=== PATIENT | female | born 1985 | race Caucasian/White ===

== ENCOUNTER 2017-01-20 21:05 | Emergency (ER) | payer BC ==
--- NOTE | 2017-01-20 22:12 | DIAGNOSTIC IMAGING REPORT ---
PROCEDURE: XR CHEST 2 VIEW INDICATION: SHORTNESS OF BREATH TECHNIQUE: Two views. COMPARISON: None. FINDINGS: The cardiomediastinal contour and central vasculature are within normal limits. The lungs are clear without focal consolidation, pleural effusion, or pneumothorax. The visualized osseous structures are intact. IMPRESSION: 1. Normal chest.
--- NOTE | 2017-01-20 23:01 | ED NURSING NOTES ---
Clinical Report - Nurses [facility] [address] [place] [address] 01/20/2017 21:06 Patient: EDVIN GONZALES TRIAGE Triage time 21:14. Acuity: LEVEL 3. Chief Complaint: SHORTNESS OF BREATH and CHEST PAIN. --21:20 Domenico Ricardo R.N. 21:14 01/20/17. BP: 138/84. HR: 111 (regular and tachycardic). RR: 24. O2 saturation: 100%. Temp: 100.1 F (oral). Pain level now: 01/29. --21:20 Domenico Ricardo R.N. Weight: 136 kg stated. Height/Length: 66 inches Per Patient. BMI: 48.4. --21:15 Domenico Ricardo R.N. Medications None. --21:15 Domenico Ricardo R.N. Allergies Ibuprofen.(hives) --21:15 Dmoenico Ricardo R.N. History Arrived by private vehicle. Historian: patient. Accompanied by friend. This started last night. ( difficulty breathing, like headedness, and chest pressure "it feels like something is sitting on my chest" with anxiety). She has had a cough productive of sputum. SOCIAL HX: Heavy tobacco smoker (cigarette)- 1 pack per day. Occasional alcohol use. No drug use. SELF HARM ASSESSMENT: A self harm assessment was performed. The patient answered "no" to the question "Have you recently felt down, depressed, or hopeless?", "Have you noticed less interest or pleasure in doing things?", "Do you have thoughts of harming or killing yourself?", "Are you here because you tried to hurt yourself?", "Have you ever tried to hurt yourself before today?" and "Have you recently had thoughts about harming or killing others?". FALL RISK ASSESSMENT: Fall risk assessment completed. No fall risk identified. NUTRITIONAL RISK ASSESSMENT: The nutritional risk assessment revealed no deficiencies. FUNCTIONAL ASSESSMENT: Functional assessment: no impairments noted. LEARNING NEEDS ASSESSMENT: The learning needs assessment revealed no barriers. SKIN INTEGRITY ASSESSMENT: Skin integrity risk assessment completed. No skin integrity risk identified. --21:20 Domenico Ricardo R.N. PROBLEMS: Back Pain. Migraine Headache. Gastroesophageal Reflux Disease. Ovarian Cyst. --21:15 Domenico Ricardo R.N. ADDITIONAL SURGERIES: Laparoscopy. Ovary removal. Tubal Ligation. --21:15 Domenico Ricardo R.N. Interventions ID band on patient. To treatment room. --21:20 Domenico Ricardo R.N. PHYSICAL ASSESSMENT Ambulatory to room. GENERAL / NEURO / PSYCH: Alert. Oriented X 4. Appears anxious. HEENT: Mucous membranes are pink. RESPIRATORY: The patient can speak in full sentences. Right upper chest wall tenderness and left upper chest wall tenderness. The tenderness is diffuse. Decreased breath sounds diffusely over both lungs. CVS: Cardiac rhythm: sinus tachycardia. ( NSR on monitor). Capillary refill less than 2 seconds. GI / : Abdomen soft and nontender. SKIN: Normal skin turgor. --21:24 Domenico Ricardo R.N. NURSING PROGRESS NOTES property assessment monitor, pulse oximeter and NIBP monitor placed on patient. Patient gowned. Head of bed elevated. Reassurance given. Two patient identifiers checked. Call light placed in reach. Side rails up. Bed placed in lowest position. Brakes of bed on. Patient ready for evaluation- chart flagged. Patient waiting for evaluation. --21:24 Domenico Ricardo R.N. 21:55 01/20/2017 Site #1 started via IV in the right antecubital space with an 20g angiocath, with aseptic technique and good blood return; one attempt. Blood drawn: rainbow set. Labeled in the presence of the patient and sent to the lab. Saline lock flushed with 10 mL saline. --21:55 Blaise Gomes R.N. ( RT is in the room.). --21:55 Blaise Gomes R.N. 21:55 01/20/17. BP: 126/66. HR: 100. RR: 19. O2 saturation: 99%. --21:55 Blaise Gomes R.N. 21:56 01/20/2017 Zofran (Ondansetron HCl) IVP 8 mg given over 1 minute(s) via site #1. Allergies verified and confirmed 5 rights. IV patency established. IV site checked: no pain, redness, or swelling. IV flushed thoroughly pre- and post-medication administration. IVP given by RN. --21:56 Blaise Gomes R.N. 21:57 01/20/2017 Started bag #1 1000 mL IV Fluids IV NS (Saline); at 1000 mL/hr over 1 hour(s) via site #1 via IV pump. Allergies verified and confirmed 5 rights. IV patency established. IV site checked: no pain, redness, or swelling. IV flushed thoroughly pre- and post-medication administration. --21:57 Blaise Gomes R.N. 21:57 01/20/2017 Duoneb (Ipratropium-Albuterol) Neb TX 1 unit dose given. Given by the nurse. Allergies verified and confirmed 5 rights. --21:57 Blaise Gomes R.N. 23:16 01/20/2017 IV Fluids IV NS Discontinued: completed upon discharge. Total amount infused: 1000 mL. IV patency established. IV site checked: no pain, redness, or swelling. IV flushed thoroughly. --23:27 Domenico Ricardo R.N. 23:24 01/20/2017 Prednisone PO Tablets 60 mg given. Allergies verified and confirmed 5 rights. --23:24 Domenico Ricardo R.N. DISPOSITION / DISCHARGE Departure time: 23:25. Condition at departure: stable. No learning barriers present. Discharge instructions provided and reviewed with the patient. Reviewed warnings. Reviewed medication(s). Treatments reviewed. Reviewed referrals for followup. Patient verbalized understanding. Written instructions provided in [place]. The patient was discharged home and accompanied by liturgical music director. She left the Emergency Department ambulatory and via private vehicle. Kiln Operator Helper driving. --23:26 Domenico Ricardo R.N. 23:25 01/20/17. BP: 117/48. HR: 101. RR: 22. O2 saturation: 98% on room air. Pain level now: 0/10. --23:26 Domenico Ricardo R.N. Locked/Released at 01/20/2017 23:27 by Domenico Ricardo R.N.
--- NOTE | 2017-01-20 23:01 | ED ORDER SUMMARY ---
..... Patient: EDVIN GONZALES OrderSheet [facility] VisitID: [id number] [address] [place] [address] 32y, F Registration Date/Time: 01/20/2017 ORDER SHEET Weight: 136.0 kg (stated) Allergies: Ibuprofen GENERAL ORDERS: Chest 2V Urgent (21:36 01/20/2017 Dominic MEI) (Ack 22:02 Yoanegekimaradha) (22:10 RFay) Talent Acquisition Associate (Continuous) (21:36 01/20/2017 Dominic MEI) (21:44 DDavis R.N.) Pulse oximeter (21:38 01/20/2017 Dominic MEI) (21:44 DDavis R.N.) RT Evaluation Stat (21:38 01/20/2017 Dominic MEI) (21:56 TLewis R.N.) MEDICATION ORDERS: DuoNeb Neb Tx 1 unit dose (NOW) (21:37 01/20/2017 Dominic MEI) (21:57 TLewis R.N.) Prednisone PO 60 mg (NOW) (22:55 01/20/2017 Dominic MEI) (23:24 DDavis R.N.) IV FLUIDS: IV NS : initial bolus 1000 mL (1000 mL/hr), then none - (NOW) (21:36 01/20/2017 Dominic MEI) (21:57 TLewis R.N.) Zofran IV 8 mg (NOW) (21:37 01/20/2017 Dominic MEI) (21:56 TLewis R.N.) ORDER SHEET NOTES: [Electronically signed by Domenico Ricardo R.N. (23:27 01/20/2017)] [Electronically signed by Amanda Son MD (21:48 01/26/2017)] [Electronically locked/signed by Domenico Ricardo R.N. (23:27 01/20/2017)]
--- NOTE | 2017-01-20 23:01 | ED NURSING NOTES ---
Clinical Report - Nurses [facility] [address] [place] [address] 01/20/2017 21:06 Patient: EDVIN GONZALES TRIAGE Triage time 21:14. Acuity: LEVEL 3. Chief Complaint: SHORTNESS OF BREATH and CHEST PAIN. --21:20 Domenico Ricardo R.N. 21:14 01/20/17. BP: 138/84. HR: 111 (regular and tachycardic). RR: 24. O2 saturation: 100%. Temp: 100.1 F (oral). Pain level now: 01/29. --21:20 Domenico Ricardo R.N. Weight: 136 kg stated. Height/Length: 66 inches Per Patient. BMI: 48.4. --21:15 Domenico Ricardo R.N. Medications None. --21:15 Domenico Ricardo R.N. Allergies Ibuprofen.(hives) --21:15 Domenico iRcardo R.N. History Arrived by private vehicle. Historian: patient. Accompanied by friend. This started last night. ( difficulty breathing, like headedness, and chest pressure "it feels like something is sitting on my chest" with anxiety). She has had a cough productive of sputum. SOCIAL HX: Heavy tobacco smoker (cigarette)- 1 pack per day. Occasional alcohol use. No drug use. SELF HARM ASSESSMENT: A self harm assessment was performed. The patient answered "no" to the question "Have you recently felt down, depressed, or hopeless?", "Have you noticed less interest or pleasure in doing things?", "Do you have thoughts of harming or killing yourself?", "Are you here because you tried to hurt yourself?", "Have you ever tried to hurt yourself before today?" and "Have you recently had thoughts about harming or killing others?". FALL RISK ASSESSMENT: Fall risk assessment completed. No fall risk identified. NUTRITIONAL RISK ASSESSMENT: The nutritional risk assessment revealed no deficiencies. FUNCTIONAL ASSESSMENT: Functional assessment: no impairments noted. LEARNING NEEDS ASSESSMENT: The learning needs assessment revealed no barriers. SKIN INTEGRITY ASSESSMENT: Skin integrity risk assessment completed. No skin integrity risk identified. --21:20 Domenico Ricardo R.N. PROBLEMS: Back Pain. Migraine Headache. Gastroesophageal Reflux Disease. Ovarian Cyst. --21:15 Domenico Ricardo R.N. ADDITIONAL SURGERIES: Laparoscopy. Ovary removal. Tubal Ligation. --21:15 Domenico Ricardo R.N. Interventions ID band on patient. To treatment room. --21:20 Domenico Ricardo R.N. PHYSICAL ASSESSMENT Ambulatory to room. GENERAL / NEURO / PSYCH: Alert. Oriented X 4. Appears anxious. HEENT: Mucous membranes are pink. RESPIRATORY: The patient can speak in full sentences. Right upper chest wall tenderness and left upper chest wall tenderness. The tenderness is diffuse. Decreased breath sounds diffusely over both lungs. CVS: Cardiac rhythm: sinus tachycardia. ( NSR on monitor). Capillary refill less than 2 seconds. GI / : Abdomen soft and nontender. SKIN: Normal skin turgor. --21:24 Domenico Ricardo R.N. NURSING PROGRESS NOTES diving judge, pulse oximeter and NIBP monitor placed on patient. Patient gowned. Head of bed elevated. Reassurance given. Two patient identifiers checked. Call light placed in reach. Side rails up. Bed placed in lowest position. Brakes of bed on. Patient ready for evaluation- chart flagged. Patient waiting for evaluation. --21:24 Domenico Ricardo R.N. 21:55 01/20/2017 Site #1 started via IV in the right antecubital space with an 20g angiocath, with aseptic technique and good blood return; one attempt. Blood drawn: rainbow set. Labeled in the presence of the patient and sent to the lab. Saline lock flushed with 10 mL saline. --21:55 Blaise Gomes R.N. ( RT is in the room.). --21:55 Blaise Gomes R.N. 21:55 01/20/17. BP: 126/66. HR: 100. RR: 19. O2 saturation: 99%. --21:55 Blaise Gomes R.N. 21:56 01/20/2017 Zofran (Ondansetron HCl) IVP 8 mg given over 1 minute(s) via site #1. Allergies verified and confirmed 5 rights. IV patency established. IV site checked: no pain, redness, or swelling. IV flushed thoroughly pre- and post-medication administration. IVP given by RN. --21:56 Blaise Gomes R.N. 21:57 01/20/2017 Started bag #1 1000 mL IV Fluids IV NS (Saline); at 1000 mL/hr over 1 hour(s) via site #1 via IV pump. Allergies verified and confirmed 5 rights. IV patency established. IV site checked: no pain, redness, or swelling. IV flushed thoroughly pre- and post-medication administration. --21:57 Blaise Gomes R.N. 21:57 01/20/2017 Duoneb (Ipratropium-Albuterol) Neb TX 1 unit dose given. Given by the nurse. Allergies verified and confirmed 5 rights. --21:57 Blaise Gomes R.N. 23:16 01/20/2017 IV Fluids IV NS Discontinued: completed upon discharge. Total amount infused: 1000 mL. IV patency established. IV site checked: no pain, redness, or swelling. IV flushed thoroughly. --23:27 Domenico Ricardo R.N. 23:24 01/20/2017 Prednisone PO Tablets 60 mg given. Allergies verified and confirmed 5 rights. --23:24 Domenico Ricardo R.N. DISPOSITION / DISCHARGE Departure time: 23:25. Condition at departure: stable. No learning barriers present. Discharge instructions provided and reviewed with the patient. Reviewed warnings. Reviewed medication(s). Treatments reviewed. Reviewed referrals for followup. Patient verbalized understanding. Written instructions provided in [place]. The patient was discharged home and accompanied by doper. She left the Emergency Department ambulatory and via private vehicle. Bracer driving. --23:26 Domenico Ricardo R.N. 23:25 01/20/17. BP: 117/48. HR: 101. RR: 22. O2 saturation: 98% on room air. Pain level now: 0/10. --23:26 Domenico Ricardo R.N. Locked/Released at 01/20/2017 23:27 by Domenico Ricardo R.N.
--- NOTE | 2017-01-20 23:01 | ED ORDER SUMMARY ---
..... Patient: EDVIN GONZALES OrderSheet VisitID: [id number] [address] [place] [address] 32y, F Registration Date/Time: 01/20/2017 ORDER SHEET Weight: 136.0 kg (stated) Allergies: Ibuprofen GENERAL ORDERS: Chest 2V Urgent (21:36 01/20/2017 Dominic MEI) (Ack 22:02 Yoanegekimaradha) (22:10 RFay) Welding Machine Assembler (Continuous) (21:36 01/20/2017 Dominic MEI) (21:44 DDavis R.N.) Pulse oximeter (21:38 01/20/2017 Dominic MEI) (21:44 DDavis R.N.) RT Evaluation Stat (21:38 01/20/2017 Dominic MEI) (21:56 TLewis R.N.) MEDICATION ORDERS: DuoNeb Neb Tx 1 unit dose (NOW) (21:37 01/20/2017 Dominic MEI) (21:57 TLewis R.N.) Prednisone PO 60 mg (NOW) (22:55 01/20/2017 Dominic MEI) (23:24 DDavis R.N.) IV FLUIDS: IV NS : initial bolus 1000 mL (1000 mL/hr), then none - (NOW) (21:36 01/20/2017 Dominic MEI) (21:57 TLewis R.N.) Zofran IV 8 mg (NOW) (21:37 01/20/2017 Dominic MEI) (21:56 TLewis R.N.) ORDER SHEET NOTES: [Electronically signed by Domenico Ricardo R.N. (23:27 01/20/2017)] [Electronically signed by Amanda Son MD (21:48 01/26/2017)] [Electronically locked/signed by Domenico Ricardo R.N. (23:27 01/20/2017)]
--- NOTE | 2017-01-20 23:01 | ED CLINICAL REPORT ---
Clinical Report - Physicians/Mid Levels [facility] [address] [place] [address] 01/20/2017 21:06 Patient: EDVIN GONZALES Time Seen: 21:19. Arrived- By private vehicle. Historian- patient. HISTORY OF PRESENT ILLNESS Chief Complaint: COUGH. RUNNY NOSE hurts to breathe, chest pain. This started about 3 days ago and is still present and now worse. The illness is described as moderate. The patient has had a cough, nasal congestion, chills, chest pain and a nasal discharge. No sputum production, fever, muscle aches, sore throat or hoarseness. No sinus pressure, sinus drainage or ear pain. The patient has had mild difficulty breathing (hurts to take a deep breath). Additional history - The patient has had contact with a sick individual. Similar symptoms previously: Occasionally. Recent medical care: The patient was seen recently by a health care provider. REVIEW OF SYSTEMS No headache, eye discomfort, nausea, vomiting or diarrhea. No abdominal pain, hay fever, pedal edema, calf pain or difficulty with urination. No skin rash, enlarged lymph nodes or joint pain. All systems otherwise negative, except as recorded above. PAST HISTORY Problems: Migraine Headache. Gastroesophageal Reflux Disease. Ovarian Cyst. Additional Surgeries: Laparoscopy. Ovary removal. Tubal Ligation. Medications: None. Allergies: Ibuprofen.(hives). SOCIAL HISTORY Smoker- current status unknown. Occasional alcohol use. No drug use. ADDITIONAL NOTES The nursing notes have been reviewed. PHYSICAL EXAM Vital Signs: 01/20/2017 21:14 BP: 138/84. HR: 111. RR: 24. O2 saturation: 100%. Temp: 100.1 F. Pain level now: 410. Have been reviewed. Appearance: Alert. Patient in mild distress. Distress appears respiratory. Eyes: Pupils equal, round and reactive to light. Eyes normal inspection. ENT: Nose normal. Neck: Normal inspection. CVS: Normal heart rate and rhythm. Heart sounds normal. Pulses normal. Respiratory: Mild respiratory distress with accessory muscle use. Expiratory moderate bilateral wheezes diffusely. Abdomen: Soft and nontender. Back: Normal inspection. No CVA tenderness. Skin: Skin warm and dry. Normal skin color. No rash. Normal skin turgor. Extremities: Extremities exhibit normal ROM. No lower extremity edema. Neuro: Oriented X 3. No motor deficit. No sensory deficit. LABS, X-RAYS, AND EKG Rhythm Strip #1: Time: (2121). Rate= 110. Sinus tachycardia. Regular rhythm. Narrow QRS complexes. No ectopy. Conduction normal. Normal ST segments and T waves. The study was interpreted by me. Chest X-ray: No acute disease. Normal lung markings present. Normal heart size. Mediastinum normal. Great vessels normal. Soft tissues normal. No infiltrate. No fracture. No bony lesion present. Views: PA and lateral. Technique: good. The X-rays were independently viewed by me, interpreted by the radiologist and contemporaneously by me and discussed with the radiologist. Prior films were not available for comparison. Pulse Oximetry: 01/20/2017 21:14 O2 saturation: 100%. (FIO2 - room air). Interpretation: normal. PROGRESS AND PROCEDURES Course of Care: The patient was worked up and treated for her shortness of breath. Chest x-ray was negative. Patient was given a DuoNeb treatment as well as a dose of prednisone after which her symptoms were much improved. No emergent condition was identified and patient was deemed stable for discharge home. Patient counseled in person regarding the patient's stable condition, test results, diagnosis and need for follow-up. Old medical records reviewed. Disposition: Discharged. Condition: stable and improved. CLINICAL IMPRESSION Acute viral (suspected) upper respiratory infection. No airway obstruction. Clinical picture does not suggest pneumonia. INSTRUCTIONS Drink plenty of fluids. Do not smoke. Seek medical help to quit smoking. Warnings: GENERAL WARNINGS: Return or contact your physician immediately if your condition worsens or changes unexpectedly, if not improving as expected, or if other problems arise. Prescription Medications: Albuterol HFA oral inhaler: inhale 2 puffs every 4 hours as needed for wheezing. Dispense one (1) unit. No refill. Prednisone 20 mg: take 3 orally every day for 4 days. Dispense sufficient quantity. No refills. Follow-up: Follow up with your doctor in seven days if not better. Understanding of the discharge instructions verbalized by patient. (Electronically signed by Amanda Son MD 01/26/2017 21:48)
--- NOTE | 2017-01-26 21:49 | ED MED RECONCILIATION SUMMARY ---
Patient: EDVIN GONZALES Medication Reconciliation Report [facility] VisitID: [id number] [address] [place] [address] 32y, F Registration Date/Time: 01/20/2017 Weight: 136.0 kg Height/Length: 66 in. BMI: 48.4 ALLERGIES: Ibuprofen The patient's Home Medications are listed below: NONE. The source(s) of the original Home Medication information: Not obtained. The following Medications were given to the patient in the Emergency Department: Zofran [IVP] IVP 8 mg, administered: 01/20/2017 9:56:00 PM IV NS IV Fluids bolus 0, then 1000 mL/hr, administered: 01/20/2017 9:57:00 PM Duoneb [Neb Tx] Neb TX 1 unit dose, administered: 01/20/2017 9:57:00 PM Prednisone [PO] PO 60 mg, administered: 01/20/2017 11:24:00 PM The following Medications were prescribed to the patient: Albuterol HFA oral inhaler: inhale 2 puffs every 4 hours as needed for wheezing. Dispense one (1) unit. No refill. -- Amanda Son MD Prednisone 20 mg: take 3 orally every day for 4 days. Dispense sufficient quantity. No refills. -- Amanda Son MD
--- NOTE | 2017-01-26 21:49 | ED DISCHARGE INSTRUCTIONS ---
Patient: EDVIN GONZALES General Instructions [facility] VisitID: [id number] [place] [address] 32y, F Registration Date/Time: 01/20/2017 Acute viral (suspected) upper respiratory infection. No airway obstruction. INSTRUCTIONS Drink plenty of fluids. Do not smoke. Seek medical help to quit smoking. Warnings: GENERAL WARNINGS: Return or contact your physician immediately if your condition worsens or changes unexpectedly, if not improving as expected, or if other problems arise. Prescription Medications: Albuterol HFA oral inhaler: inhale 2 puffs every 4 hours as needed for wheezing. Dispense one (1) unit. No refill. Prednisone 20 mg: take 3 orally every day for 4 days. Dispense sufficient quantity. No refills. Follow-up: Follow up with your doctor in seven days if not better. Understanding of the discharge instructions verbalized by patient. ADDITIONAL INFORMATION Viral Respiratory Illness [Adult] You have an Upper Respiratory Illness (URI) caused by a virus. This illness is contagious during the first few days. It is spread through the air by coughing and sneezing or by direct contact (touching the sick person and then touching your own eyes, nose or mouth). Most viral illnesses go away within 7-10 days with rest and simple home remedies. Sometimes, the illness may last for several weeks. Antibiotics will not kill a virus and are generally not prescribed for this condition. Home Care: 1) If symptoms are severe, rest at home for the first 2-3 days. When you resume activity, don't let yourself get too tired. 2) Avoid being exposed to cigarette smoke (yours or others). 3) Tylenol (acetaminophen) or ibuprofen (Advil, Motrin) will help fever, muscle aching and headache. (Persons under 18 with fever should not take aspirin since this may cause liver damage.) 4) Your appetite may be poor, so a light diet is fine. Avoid dehydration by drinking 6-8 glasses of fluids per day (water, soft drinks, juices, tea, soup). Extra fluids will help loosen secretions in the nose and lungs. 5) Stij-hdc-wunwycb cold medicines will not shorten the length of time youre sick, but they may be helpful for the following symptoms: cough (Robitussin DM); sore throat (Chloraseptic lozenges or spray); nasal and sinus congestion (Actifed, Sudafed, Chlortrimeton). Follow Up with your doctor or as advised if you dont improve over the next week. Get Prompt Medical Attention if any of the following occur: -- Cough with lots of colored sputum (mucus) or blood in your sputum -- Chest pain, shortness of breath, wheezing or have trouble breathing -- Severe headache; face, neck or ear pain -- Fever over 100.4 F (38.0 C) for more than three days -- You cant swallow due to throat pain How To Quit Smoking Smoking is one of the hardest habits to break. About half of all those who have ever smoked have been able to quit, and most of those (about 70%) who still smoke want to quit. Here are some of the best ways to stop smoking. Keep Trying: It takes most smokers about 8 tries before they are finally able to fully quit. So, the more often you try and fail, the better your chance of quitting the next time! So, don't give up! Go Cold [place]: Most ex-smokers quit cold turkey. Trying to cut back gradually doesn't seem to work as well, perhaps because it continues the smoking habit. Also, it is possible to fool yourself by inhaling more while smoking fewer cigarettes. This results in the same amount of nicotine in your body! Get Support: Support programs can make an important difference, especially for the heavy smoker. These groups offer lectures, methods to change your behavior and peer support. Call the free national Quitline for more information. 070-VVTS-VZW (395-642-6779). Low-cost or free programs are offered by many hospitals, local chapters of the [place] [employer] (265-605-6548) and the [place] [employer] (655-011-8770). Support at home is important too. Non-smokers can help by offering praise and encouragement. If the smoker fails to quit, encourage them to try again! Qvlq-Hue-Rvmqpfd Medicines: For those who can't quit on their own, Nicotine Replacement Therapy (NRT) may make quitting much easier. Certain aids such as the nicotine patch, gum and lozenge are available without a prescription. However, it is best to use these under the guidance of your doctor. The skin patch provides a steady supply of nicotine to the body. Nicotine gum and lozenge gives temporary bursts of low levels of nicotine. Both methods take the edge off the craving for cigarettes. WARNING: If you feel symptoms of nicotine overdose, such as nausea, vomiting, dizziness, weakness, or fast heartbeat, stop using these and see your doctor. Prescription Medicines: After evaluating your smoking patterns and prior attempts at quitting, your doctor may offer a prescription medicine such as bupropion (Zyban, Wellbutrin), varenicline (Chantix, Champix), a niocotine inhaler or nasal spray. Each has its unique advantage and side effects which your doctor can review with you. Health Benefits Of Quitting: The benefits of quitting start right away and keep improving the longer you go without smokin minutes: blood pressure and pulse return to normal 8 hours: oxygen levels return to normal 2 days: ability to smell and taste begins to improve as damaged nerves start to regrow 2-3 weeks: circulation and lung function improves 1-9 months: decreased cough, congestion and shortness of breath; less tired 1 year: risk of heart attack decreases by half 5 years: risk of lung cancer decreases by half; risk of stroke becomes the same as a non-smoker For information about how to quit smoking, visit the following links: National Cancer [place] , Clearing the Air, Quit Smoking Today - an online booklet. http://www.smokefree.gov/pubs/clearing_the_air.pdf Smokefree.gov http://smokefree.gov/ QuitNet http://www.quitnet.com/ You have been given the following additional information: Uri, Viral, No Abx (Adult) Smoking Cessation (Electronically signed by Amanda Son MD 01/26/2017 21:48)
--- NOTE | 2017-01-26 21:49 | ED MED RECONCILIATION SUMMARY ---
Patient: EDVIN GONZALES Medication Reconciliation Report [facility] VisitID: [id number] [address] [place] [address] 32y, F Registration Date/Time: 01/20/2017 Weight: 136.0 kg Height/Length: 66 in. BMI: 48.4 ALLERGIES: Ibuprofen The patient's Home Medications are listed below: NONE. The source(s) of the original Home Medication information: Not obtained. The following Medications were given to the patient in the Emergency Department: Zofran [IVP] IVP 8 mg, administered: 01/20/2017 9:56:00 PM IV NS IV Fluids bolus 0, then 1000 mL/hr, administered: 01/20/2017 9:57:00 PM Duoneb [Neb Tx] Neb TX 1 unit dose, administered: 01/20/2017 9:57:00 PM Prednisone [PO] PO 60 mg, administered: 01/20/2017 11:24:00 PM The following Medications were prescribed to the patient: Albuterol HFA oral inhaler: inhale 2 puffs every 4 hours as needed for wheezing. Dispense one (1) unit. No refill. -- Amanda Son MD Prednisone 20 mg: take 3 orally every day for 4 days. Dispense sufficient quantity. No refills. -- Amanda Son MD
--- NOTE | 2017-01-26 21:49 | ED DISCHARGE INSTRUCTIONS ---
Patient: EDVIN GONZALES General Instructions [facility] VisitID: [id number] [place] [address] 32y, F Registration Date/Time: 01/20/2017 Acute viral (suspected) upper respiratory infection. No airway obstruction. INSTRUCTIONS Drink plenty of fluids. Do not smoke. Seek medical help to quit smoking. Warnings: GENERAL WARNINGS: Return or contact your physician immediately if your condition worsens or changes unexpectedly, if not improving as expected, or if other problems arise. Prescription Medications: Albuterol HFA oral inhaler: inhale 2 puffs every 4 hours as needed for wheezing. Dispense one (1) unit. No refill. Prednisone 20 mg: take 3 orally every day for 4 days. Dispense sufficient quantity. No refills. Follow-up: Follow up with your doctor in seven days if not better. Understanding of the discharge instructions verbalized by patient. ADDITIONAL INFORMATION Viral Respiratory Illness [Adult] You have an Upper Respiratory Illness (URI) caused by a virus. This illness is contagious during the first few days. It is spread through the air by coughing and sneezing or by direct contact (touching the sick person and then touching your own eyes, nose or mouth). Most viral illnesses go away within 7-10 days with rest and simple home remedies. Sometimes, the illness may last for several weeks. Antibiotics will not kill a virus and are generally not prescribed for this condition. Home Care: 1) If symptoms are severe, rest at home for the first 2-3 days. When you resume activity, don't let yourself get too tired. 2) Avoid being exposed to cigarette smoke (yours or others). 3) Tylenol (acetaminophen) or ibuprofen (Advil, Motrin) will help fever, muscle aching and headache. (Persons under 18 with fever should not take aspirin since this may cause liver damage.) 4) Your appetite may be poor, so a light diet is fine. Avoid dehydration by drinking 6-8 glasses of fluids per day (water, soft drinks, juices, tea, soup). Extra fluids will help loosen secretions in the nose and lungs. 5) Gzcv-fzv-gndhmtv cold medicines will not shorten the length of time youre sick, but they may be helpful for the following symptoms: cough (Robitussin DM); sore throat (Chloraseptic lozenges or spray); nasal and sinus congestion (Actifed, Sudafed, Chlortrimeton). Follow Up with your doctor or as advised if you dont improve over the next week. Get Prompt Medical Attention if any of the following occur: -- Cough with lots of colored sputum (mucus) or blood in your sputum -- Chest pain, shortness of breath, wheezing or have trouble breathing -- Severe headache; face, neck or ear pain -- Fever over 100.4 F (38.0 C) for more than three days -- You cant swallow due to throat pain How To Quit Smoking Smoking is one of the hardest habits to break. About half of all those who have ever smoked have been able to quit, and most of those (about 70%) who still smoke want to quit. Here are some of the best ways to stop smoking. Keep Trying: It takes most smokers about 8 tries before they are finally able to fully quit. So, the more often you try and fail, the better your chance of quitting the next time! So, don't give up! Go Cold [place]: Most ex-smokers quit cold turkey. Trying to cut back gradually doesn't seem to work as well, perhaps because it continues the smoking habit. Also, it is possible to fool yourself by inhaling more while smoking fewer cigarettes. This results in the same amount of nicotine in your body! Get Support: Support programs can make an important difference, especially for the heavy smoker. These groups offer lectures, methods to change your behavior and peer support. Call the free national Quitline for more information. 575-ECCM-UXO (325-099-1858). Low-cost or free programs are offered by many hospitals, local chapters of the [place] [employer] (319-298-9421) and the [place] [employer] (530-332-8714). Support at home is important too. Non-smokers can help by offering praise and encouragement. If the smoker fails to quit, encourage them to try again! Zjac-Wgd-Ydexhqc Medicines: For those who can't quit on their own, Nicotine Replacement Therapy (NRT) may make quitting much easier. Certain aids such as the nicotine patch, gum and lozenge are available without a prescription. However, it is best to use these under the guidance of your doctor. The skin patch provides a steady supply of nicotine to the body. Nicotine gum and lozenge gives temporary bursts of low levels of nicotine. Both methods take the edge off the craving for cigarettes. WARNING: If you feel symptoms of nicotine overdose, such as nausea, vomiting, dizziness, weakness, or fast heartbeat, stop using these and see your doctor. Prescription Medicines: After evaluating your smoking patterns and prior attempts at quitting, your doctor may offer a prescription medicine such as bupropion (Zyban, Wellbutrin), varenicline (Chantix, Champix), a niocotine inhaler or nasal spray. Each has its unique advantage and side effects which your doctor can review with you. Health Benefits Of Quitting: The benefits of quitting start right away and keep improving the longer you go without smokin minutes: blood pressure and pulse return to normal 8 hours: oxygen levels return to normal 2 days: ability to smell and taste begins to improve as damaged nerves start to regrow 2-3 weeks: circulation and lung function improves 1-9 months: decreased cough, congestion and shortness of breath; less tired 1 year: risk of heart attack decreases by half 5 years: risk of lung cancer decreases by half; risk of stroke becomes the same as a non-smoker For information about how to quit smoking, visit the following links: National Cancer [place] , Clearing the Air, Quit Smoking Today - an online booklet. http://www.smokefree.gov/pubs/clearing_the_air.pdf Smokefree.gov http://smokefree.gov/ QuitNet http://www.quitnet.com/ You have been given the following additional information: Uri, Viral, No Abx (Adult) Smoking Cessation (Electronically signed by Amanda Son MD 01/26/2017 21:48)
--- NOTE | 2017-01-26 21:49 | ED MAR SUMMARY ---
..... Medication Administration Record [facility] [address] [place] [address] Patient: EDVIN GONZALES Visit ID: [id number] 32y, F Weight: 136.0 kg Height/Length: 66 in BMI: 48.4 ALLERGIES: Ibuprofen Given 21:56 01/20/2017 Blaise Gomes R.N. Medication Administered: ZOFRAN [IVP] (ONDANSETRON HCL), Dose: 8 mg IVP over 1 minute(s), Site: #1 right AC. Medication Ordered: Zofran IV 8 mg (NOW). Given 21:57 01/20/2017 Blaise Gomes R.N. Medication Administered: DUONEB [NEB TX] (IPRATROPIUM-ALBUTEROL), Dose: 1 unit dose Neb TX. Medication Ordered: DuoNeb Neb Tx 1 unit dose (NOW). Start 21:57 01/20/2017 Blaise Gomes R.N., Stop 23:16 01/20/2017 Domenico Ricardo R.N. Medication Administered: IV NS (SALINE), Dose: IV Fluids over 1 hour(s), Rate: 1000 mL/hr, Dispensed: 1000 mL bag, Site: #1 right AC. Medication Ordered: IV NS : initial bolus 1000 mL (1000 mL/hr), then none - (NOW). Given 23:24 01/20/2017 Domenico Ricardo R.N. Medication Administered: PREDNISONE [PO], Dose: 60 mg Tablets PO. Medication Ordered: Prednisone PO 60 mg (NOW).
--- NOTE | 2017-01-26 21:49 | ED MAR SUMMARY ---
..... Medication Administration Record [facility] [address] [place] [address] Patient: EDVIN GONZALES Visit ID: [id number] 32y, F Weight: 136.0 kg Height/Length: 66 in BMI: 48.4 ALLERGIES: Ibuprofen Given 21:56 01/20/2017 Blaise Gomes R.N. Medication Administered: ZOFRAN [IVP] (ONDANSETRON HCL), Dose: 8 mg IVP over 1 minute(s), Site: #1 right AC. Medication Ordered: Zofran IV 8 mg (NOW). Given 21:57 01/20/2017 Blaise Gomes R.N. Medication Administered: DUONEB [NEB TX] (IPRATROPIUM-ALBUTEROL), Dose: 1 unit dose Neb TX. Medication Ordered: DuoNeb Neb Tx 1 unit dose (NOW). Start 21:57 01/20/2017 Blaise Gomes R.N., Stop 23:16 01/20/2017 Domenico Ricardo R.N. Medication Administered: IV NS (SALINE), Dose: IV Fluids over 1 hour(s), Rate: 1000 mL/hr, Dispensed: 1000 mL bag, Site: #1 right AC. Medication Ordered: IV NS : initial bolus 1000 mL (1000 mL/hr), then none - (NOW). Given 23:24 01/20/2017 Domenico Ricardo R.N. Medication Administered: PREDNISONE [PO], Dose: 60 mg Tablets PO. Medication Ordered: Prednisone PO 60 mg (NOW).
== END 2017-01-20 23:26 | disposition home or self-care (01) ==
LOC: ED SRH 21:05
DX: R05 Cough (principal); R07.9 Chest pain, unspecified; K21.9 Gastro-esophageal reflux disease without esophagitis; Z88.8 Allergy status to other drugs, medicaments and biological substances